=== PATIENT | female | born 1965 | race Caucasian/White ===

== ENCOUNTER 2016-09-01 19:46 | Emergency (ER) | payer SELFPAY ==
[2016-09-01 19:57] VITALS: BP 132/87; PULSE 75; TEMP 98.2; BMI 29.2
--- NOTE | 2016-09-01 19:57 | PDOC ---
Rapid Medical Evaluation Chief Complaint: Pain Time Seen by Provider: 09/01/16 19:53 Medical Evaluation: 09/01/16 19:55 I have performed a brief in-person evaluation of this patient. The patient presents with a chief complaint of: R calf pain/tightness s/p playing football yesterday, no fall. No obvious RF for DVT/PE Pertinent physical exam findings:+ttp to R calf, no obvious swelling I have ordered the following:nothing, will defer management to ED provider The patient will proceed to the ED for further evaluation.
[2016-09-01] MEDS ORDERED: IBUPROFEN 600 MG TABLET (FP) PO ONE (20:20)
[2016-09-01] MEDS ORDERED: IBUPROFEN 400 MG TABLET (FP) PO ONE (20:25)
--- NOTE | 2016-09-01 20:26 | PDOC ---
History of Present Illness - General Chief Complaint: Pain Stated Complaint: LT LEG PAIN Time Seen by Provider: 09/01/16 19:53 History Source: Patient Exam Limitations: No Limitations - History of Present Illness Initial Comments: 09/01/16 20:21 51 yr female was playing soccer yesterday woke up with soreness to right calf. Pt denies falling down. Pt states she did not take any meds for pain . no medical history or allergies Extremity Pain Location - Extremity Pain Location Extremity Pain Locations: right: leg Past History - Travel Traveled outside of the country in the last 30 days: No Close contact w/someone who was outside of country & ill: No - Past Medical History Allergies/Adverse Reactions: Allergies Allergy/AdvReac Type Severity Reaction Status Date / Time No Known Allergies Allergy Verified 09/01/16 19:57 Other medical history: denies - Psycho/Social/Smoking Cessation Hx Suicidal Ideation: No Smoking History: Never smoked Review of Systems - Review of Systems Able to Perform ROS?: Yes Is the patient limited Montenegrin proficient: No Constitutional: No: Symptoms Reported HEENTM: No: Symptoms Reported Respiratory: No: Symptoms reported Cardiac (ROS): No: Symptoms Reported ABD/GI: No: Symptoms Reported : No: Symptoms Reported Musculoskeletal: Yes: Symptoms Reported, Muscle Pain (right calf pain ) Integumentary: No: Symptoms Reported Neurological: No: Symptoms reported *Physical Exam - Vital Signs Last Vital Signs Temp Pulse Resp BP Pulse Ox 98.2 F 75 18 132/87 99 09/01/16 19:53 09/01/16 19:53 09/01/16 19:53 09/01/16 19:53 09/01/16 19:53 - Physical Exam General Appearance: Yes: Nourished, Appropriately Dressed HEENT: positive: EOMI, KARMA, Normal ENT Inspection, TMs Normal, Pharynx Normal Neck: positive: Supple. negative: Tender Respiratory/Chest: positive: Lungs Clear, Normal Breath Sounds Cardiovascular: positive: Regular Rhythm, Regular Rate Gastrointestinal/Abdominal: positive: Normal Bowel Sounds, Soft Musculoskeletal: positive: Normal Inspection. negative: CVA Tenderness (L) Extremity: positive: Normal Capillary Refill, Normal Inspection, Normal Range of Motion, Tender (right calf , no swelling no redness no warmth ) Integumentary: positive: Normal Color, Dry, Warm Neurologic: positive: Fully Oriented, Alert, Normal Mood/Affect, Normal Response , Motor Strength 07/18 Medical Decision Making - Medical Decision Making 09/01/16 20:23 cc: right calf pain after playing soccer yesterday pt ambulatory with limp no fever no redness no warmth , no swelling will give motrin and oliverio wrap muscle strain from playing soccer *DC/Admit/Observation/Transfer Diagnosis at time of Disposition: Muscle strain - Discharge Dispostion Disposition: HOME Condition at time of disposition: Good - Referrals Referrals: Kris Barron MD [Staff Physician] - - Patient Instructions Additional Instructions: elevate and apply ice every 2hrs for 20 minutes for the next 2 days take motrin 800mg every 6-8hrs for pain as needed follow with the orthopedist if pain worsens or persists
== END 2016-09-01 21:27 | disposition home or self-care (01) ==
LOC: JERFT 19:46
DX: S86.111A Strain of other muscle(s) and tendon(s) of posterior muscle group at lower leg level, right leg, initial encounter (principal); X50.0XXA Overexertion from strenuous movement or load, initial encounter; Y93.66 Activity, soccer; Y92.322 Soccer field as the place of occurrence of the external cause; Y99.8 Other external cause status
CPT/HCPCS: 99281-25